=== PATIENT | female | born 1935 | race Caucasian/White ===

== ENCOUNTER 2017-12-15 09:44 | Emergency (ER) | payer OTHER ==
--- OUTSIDE RECORDS SUMMARY | 2017-12-15 09:45 | XMS REPORT ---
:1935 Author Organization [employer]ClinicalWorks Care Team Providers Name Role Phone Tanya Stewart Provider Role Unavailable Allergies, Adverse Reactions, Alerts Substance Reaction Event Type N.K.D.A. Info Not Available Non Drug Allergy Problems Problem Type Condition Code Onset Dates Condition Status Problem Hypertension, unspecified type I10 Active Problem Hypothyroidism, unspecified type E03.9 Active Problem Prediabetes R73.03 Active Problem Hypertension I10 Active Problem Hypothyroidism E03.9 Active Problem Hyperlipidemia E78.5 Active Problem Nicotine dependence F17.200 Active Problem Hyperlipidemia, unspecified E78.5 Active hyperlipidemia type Problem Osteoarthritis M19.90 Active Problem Depression with anxiety F41.8 Active Assessment Hyperlipidemia, unspecified E78.5 Active hyperlipidemia type Assessment Prediabetes R73.03 Active Assessment Depression with anxiety F41.8 Active Assessment Hypertension, unspecified type I10 Active Assessment Hypothyroidism, unspecified type E03.9 Active Medications Medication Code Code Instructions Start End Status Dosage System Date Date Cozaar [facility] 55317681418 100 mg Orally Active 1 tablet Once a day Fish Oil ND 52931192298 1000 MG Orally Active 1 capsule Once a day Citalopram ND 95763204927 20 mg Orally Active 1 tablet Hydrobromide Once a day Aleve ND 85299132798 220 MG Orally Active 1 tablet every 12 hrs with food or milk as needed Simvastatin ND 53681093597 20 mg Orally Active 1 tablet Once a day in the evening Levothyroxine ND 41078453465 100 MCG Orally Active 1 tablet Sodium Once a day on an empty stomach in the morning Os-Eliel Calcium + ND 35826282537 500-200 MG-UNIT Active 1 tablet D3 Orally Once a with a day meal Celebrex ND 25778970460 100 MG Orally Active 1 capsule Twice a day with food Results No Known Results Summary Purpose [facility]
[2017-12-15] MEDS ORDERED: LIDOCAINE 1% MPF 2 ML AMPULE ONE (10:28)
[2017-12-15] MEDS ORDERED: LIDOCAINE 2% MPF 5 ML VIAL ONE (10:28)
[2017-12-15] MEDS ORDERED: TETANUS & DIPHTHERIA TOX,ADULT 0.5 ML VIAL ONE (10:34)
--- NOTE | 2017-12-15 11:55 | RAD REPORT ---
EXAM DESCRIPTION: CT - CTHCSPWOC - 12/15/2017 10:46 am CLINICAL HISTORY: Fall, head and neck injury COMPARISON: None. TECHNIQUE: Axial 5 mm thick images of the head were obtained. Axial 2 mm thick images of the cervic al spine were obtained with sagittal and coronal reconstruction images generated and reviewed. All CT scans are performed using dose optimization technique as appropriate and may include automated exposure control or mA/KV adjustment according to patient size. FINDINGS: No intracranial hemorrhage, mass, edema or acute intracranial finding. No suspicion for acute infarct ion. Mild atrophy and mild to moderate chronic ischemic changes are present. Ventricles are in propor tion to the volume loss. Mastoid air cells and paranasal sinuses are clear. No globe or orbit abnorma lity seen. Physiologic and arterial calcifications are present. C2-C4 and C7 bodies are normal in height. There is minimal height loss in the C5 and C6 bodies with m ild retrolisthesis of these 2 bodies relative to C4 and C7. There are no findings to suspect an acute compression. There is significant degenerative disc disease at C5-6 and C6-7. Anterior and posterior endplate spurs are present. No significant bony foraminal encroachment. No other significant disc sp mook narrowing. No fracture or acute bony abnormality. No pathologic bone process. Central canal detai l is inherently limited. Multilevel facet joint degenerative change present. No paraspinal mass or hematoma. IMPRESSION: No hemorrhage, edema or acute intracranial finding. Mild atrophy and mild to moderate ch ronic ischemic changes are present. Advanced degenerative change involves C5, C6 and the C5-6 and C6-7 disc spaces. No fracture or acute cervical finding. Central canal detail is inherently limited.
--- NOTE | 2017-12-15 11:55 | ER ---
Nurse's Notes [facility] Name: Tisha Magana Age: 82 yrs Sex: Female : 1935 Arrival Date: 12/15/2017 Time: 09:45 Bed 3 Private MD: Tanya Stewart Diagnosis: Facial/lip laceration - Family history:: not pertinent. - Hospitalizations: : No recent hospitalization is reported. Assessment: 12/15 12:10 General: See paper charting. jl7 ED Course: 09:45 Patient arrived in ED. mr 09:45 Tanya Stewart MD is Private Physician. mr 10:16 Milind Valencia MD is Attending Physician. rn 10:36 Arpan Ramírez RN is Primary Nurse. jl7 10:45 CT completed. Patient tolerated procedure well. Patient moved to CT via wheelchair. vr Patient moved back from CT. 12:00 Assist provider with laceration repair on right upper lyudmila border that was jl7 between 2.6 to 7.5 cm using sutures. Set up tray. Performed by Cecil MARTI Patient tolerated well. 12:10 Patient did not have IV access during this emergency room visit. jl7 Administered Medications: No medications were administered Outcome: 11:54 Discharge ordered by . rn 12:10 Discharged to home ambulatory. jl7 12:10 Condition: stable 12:10 Discharge instructions given to patient, Instructed on discharge instructions, follow up and referral plans. Demonstrated understanding of instructions, follow-up care. 12:12 Patient left the ED. jl7 Signatures: Lisa Hanson mr Milind Valencia MD MD rn Davis, Victoria Arpan Ramírez RN RN jl7 Corrections: (The following items were deleted from the chart) 13:19 13:18 Discharged to home ambulatory, jl7 jl7 13:19 13:18 Condition: stable jl7 jl7 13:19 13:18 Discharge instructions given to patient, Instructed on discharge instructions, jl7 follow up and referral plans. Demonstrated understanding of instructions, follow-up care, jl7 13:19 13:15 Assist provider with laceration repair on right upper lyudmila border that was jl7 between 2.6 to 7.5 cm using sutures. Set up tray. Performed by Cecil MARTI Patient tolerated well. jl7
--- NOTE | 2017-12-15 11:56 | EDPHYS ---
Physician Documentation [facility] Name: Tisha Magana Age: 82 yrs Sex: Female : 1935 Arrival Date: 12/15/2017 Time: 09:45 Bed 3 Private MD: Tanya Stewart ED Physician Milind Valencia HPI: 12/15 10:21 This 82 yrs old Female presents to ER via Unassigned with complaints of Fall rn Injury. 10:21 Details of fall: The patient fell from an upright position, while walking. Onset: The rn symptoms/episode began/occurred just prior to arrival. Associated injuries: The patient sustained injury to the head. Severity of symptoms: At their worst the symptoms were mild, in the emergency department the symptoms have improved. The patient has not experienced similar symptoms in the past. Walking to take out trash, tripped, hit face on cabinet, no LOC, not on blood thinners, + laceration to lip/mouth, no other injuries, reports mild neck pain.. - Family history:: not pertinent. - Hospitalizations: : No recent hospitalization is reported. ROS: 10:21 Constitutional: Negative for fever, chills, and weight loss, Eyes: Negative for injury, rn pain, redness, and discharge, ENT: + lip and mouth laceration Neck: + neck pain Cardiovascular: Negative for chest pain, palpitations, and edema, Respiratory: Negative for shortness of breath, cough, wheezing, and pleuritic chest pain, Abdomen/GI: Negative for abdominal pain, nausea, vomiting, diarrhea, and constipation, Back: Negative for injury and pain, MS/Extremity: Negative for injury and deformity, Neuro: Negative for headache, weakness, numbness, tingling, and seizure. Exam: 10:21 Constitutional: This is a well developed, well nourished patient who is awake, alert, rn and in no acute distress. Head/Face: Normocephalic, 2 cm linear laceration right corner of mouth that crosses lyudmila border, also 1cm laceration inner right cheek not far from outer laceration, seems to communicate. no active bleeding, no dental injury Eyes: Pupils equal round and reactive to light, extra-ocular motions intact. Lids and lashes normal. Conjunctiva and sclera are non-icteric and not injected. Cornea within normal limits. Periorbital areas with no swelling, redness, or edema. Neck: Trachea midline, no thyromegaly or masses palpated, and no cervical lymphadenopathy. Supple, full range of motion without nuchal rigidity, or vertebral point tenderness. No Meningismus. Cardiovascular: Regular rate and rhythm with a normal S1 and S2. No gallops, murmurs, or rubs. Normal PMI, no JVD. No pulse deficits. Respiratory: Lungs have equal breath sounds bilaterally, clear to auscultation and percussion. No rales, rhonchi or wheezes noted. No increased work of breathing, no retractions or nasal flaring. Abdomen/GI: Soft, non-tender, with normal bowel sounds. No distension or tympany. No guarding or rebound. No evidence of tenderness throughout. Back: No spinal tenderness. No costovertebral tenderness. Full range of motion. MS/ Extremity: Pulses equal, no cyanosis. Neurovascular intact. Full, normal range of motion. Equal circumference. Neuro: Awake and alert, GCS 15, oriented to person, place, time, and situation. Cranial nerves II-XII grossly intact. Motor strength 5/5 in all extremities. Sensory grossly intact. Cerebellar exam normal. Normal gait. Laceration: 11:51 Wound Repair of 2cm ( 0.8in ) subcutaneous laceration to right cheek. Distal rn neuro/vascular/tendon intact. Anesthesia: Wound infiltrated with 4 mls of 1% lidocaine. Wound prep: Extensive cleansing by nurse, Wound explored extensively. Skin closed with 4 5-0 chromic using interrupted sutures and sterile technique. Subcutaneous tissue closed with 2 5-0 chromic. Mucosal layer closed with 4 5-0 chromic. Dressed with none. Patient tolerated well. MDM: 10:16 Patient medically screened. rn 11:51 Differential diagnosis: laceration. Data reviewed: vital signs, nurses notes, and as a rn result, I will discharge patient. Counseling: I had a detailed discussion with the patient and/or guardian regarding: the historical points, exam findings, and any diagnostic results supporting the discharge/admit diagnosis, radiology results, the need for outpatient follow up, to return to the emergency department if symptoms worsen or persist or if there are any questions or concerns that arise at home. Special discussion: Based on the patient's history, exam and DX evaluation, there is no indication for emergent intervention or inpatient TX. It is understood by the patient/guardian that if the SXs persist or worsen they need to return immediately for re-evaluation. I discussed with the patient/guardian in detail that at this point there is no indication for admission to the hospital. It is understood, however, that if the symptoms persist or worsen the patient needs to return immediately for re-evaluation. 12/15 11:57 Order name: CT EDMS Administered Medications: No medications were administered Disposition: 12/15/17 11:54 Discharged to Home. Impression: Facial/lip laceration. - Condition is Stable. - Discharge Instructions: Mouth Laceration, Facial Laceration. - Medication Reconciliation Form, Thank You Letter, Antibiotic Education, Prescription Opioid Use form. - Follow up: Private Physician; When: As needed; Reason: Recheck today's complaints, Re-evaluation by your physician. - Problem is new. - Symptoms have improved. Signatures: Milind Valencia MD MD rn Leal, Jahala, RN RN jl7 Corrections: (The following items were deleted from the chart) 12:12 11:54 12/15/2017 11:54 Discharged to Home. Impression: Facial/lip laceration. Condition jl7 is Stable. Forms are Medication Reconciliation Form, Thank You Letter, Antibiotic Education, Prescription Opioid Use. Follow up: Private Physician; When: As needed; Reason: Recheck today's complaints, Re-evaluation by your physician. Problem is new. Symptoms have improved. rn
== END 2017-12-15 12:12 | disposition home or self-care (01) ==
LOC: ER 09:44
PROC: 0JQ10ZZ Repair Face Subcutaneous Tissue and Fascia, Open Approach (ICD-10-PCS; principal; 2017-12-15)
DX: S01.511A Laceration without foreign body of lip, initial encounter (principal); W01.0XXA Fall on same level from slipping, tripping and stumbling without subsequent striking against object, initial encounter; Y93.89 Activity, other specified; Y92.014 Private driveway to single-family (private) house as the place of occurrence of the external cause
CPT/HCPCS: 12011; 70450; 72125; 90714; 99284; J2001

== ENCOUNTER 2018-03-24 16:21 | Emergency (ER) | payer OTHER ==
--- OUTSIDE RECORDS SUMMARY | 2018-03-24 16:22 | XMS REPORT ---
[...] End Status Dosage System Date Date Cozaar [facility] 89378342909 100 mg Orally Active 1 tablet Once a day Fish Oil ND 57021389292 1000 MG Orally Active 1 capsule Once a day Citalopram ND 36114043025 20 mg Orally Active 1 tablet Hydrobromide Once a day Aleve ND 07296071900 220 MG Orally Active 1 tablet every 12 hrs with food or milk as needed Simvastatin ND 18316678377 20 mg Orally Active 1 tablet Once a day in the evening Levothyroxine ND 34469268456 100 MCG Orally Active 1 tablet Sodium Once a day on an empty stomach in the morning Os-Eliel Calcium + ND 17758717267 500-200 MG-UNIT Active 1 tablet D3 Orally Once a with a day meal Celebrex ND 60983660993 100 MG Orally Active 1 capsule Twice a day with food Results No Known Results Summary [facility]
--- OUTSIDE RECORDS SUMMARY | 2018-03-24 16:22 | XMS REPORT ---
:1935 Author Organization eClinicalWorks Care Team Providers Name Role Phone Tanya Stewart Provider Role Unavailable Allergies No Known Allergies Problems Problem Type Condition Code Onset Dates Condition Status Problem Hypertension, unspecified type I10 Active Problem Hypothyroidism, unspecified type E03.9 Active Problem Prediabetes R73.03 Active Problem Hypertension I10 Active Problem Hypothyroidism E03.9 Active Problem Hyperlipidemia E78.5 Active Problem Nicotine dependence F17.200 Active Problem Hyperlipidemia, unspecified E78.5 Active hyperlipidemia type Problem Osteoarthritis M19.90 Active Problem Depression with anxiety F41.8 Active Medications No Known Medications Results No Known Results Summary Purpose [facility] Submission
[2018-03-24] MEDS ORDERED: MORPHINE 4 MG/ML SYR ONE (18:43)
[2018-03-24] MEDS ORDERED: ONDANSETRON 4 MG/2 ML VIAL ONE (18:43)
[2018-03-24 18:59] LABS: Absolute Lymphocytes (CBC) 2.4 K/uL (0.7-4.9); Absolute Monocytes 0.9 K/uL (0.1-1.3); Absolute Neutrophil 6.7 K/uL (1.8-8.0); Basophils % 0.4 % (0-1.3); Eosinophils % 1.1 % (0-4.4); Lymphocytes % 23.5 % (15.3-44.8); MPV 8.1 fL (7.6-11.3); Monocytes % 9.2 % (3.3-12.3); RBC Red Blood Cell Count 4.63 M/uL (3.86-4.86)
--- NOTE | 2018-03-24 18:59 | RAD REPORT ---
EXAM DESCRIPTION: RAD - Chest Pa And Lat (2 Views) - 03/24/2018 6:53 pm CLINICAL HISTORY: left rib pain Chest pain. COMPARISON: CHEST PA AND LAT 2 VIEW dated 01/11/2014 FINDINGS: Diffuse COPD is noted. No focal infiltrate is detected. The heart is normal in size. No di splaced fractures. Aortic atherosclerosis. IMPRESSION: Diffuse COPD.
[2018-03-24 19:17] LABS: Albumin 3.9 g/dL (3.4-5.0); Bilirubin Direct 0.1 mg/dL (0-0.2); Bilirubin Total 0.4 mg/dL (0.2-1.0); Potassium 3.9 mmol/L (3.5-5.1); Protein, Total 7.8 g/dL (6.4-8.2)
--- NOTE | 2018-03-24 19:50 | RAD REPORT ---
EXAM DESCRIPTION: CTAbdomen Pelvis W Contrast - 03/24/2018 7:34 pm CLINICAL HISTORY: Abdominal pain. LUQ pain COMPARISON: No comparisonsHead C Spine Mpr Wo Con dated 12/15/2017 TECHNIQUE: Biphasic CT imaging of the abdomen and pelvis was performed with 100 ml non-ionic IV cont rast. All CT scans are performed using dose optimization technique as appropriate and may include automated exposure control or mA/KV adjustment according to patient size. FINDINGS: The lung bases are clear. The liver, spleen, pancreas, adrenal glands and kidneys are within normal limits. No bowel obstruction, free air, free fluid or abscess. The appendix is not identified as a discrete structure, however, no secondary findings of appendicitis are identified. No evidence of significan t lymphadenopathy. Diffuse lytic and sclerotic lesions are seen throughout the axial skeleton. The ninth left lateral ri b shows cortical irregularity suspicious for nondisplaced fracture. 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 A nuclear medicine bone scan would be recommended for followup. Nondisplaced fracture left lateral rib, potentially a pathologic fracture.
--- NOTE | 2018-03-24 20:32 | ER ---
Nurse's Notes [facility] Name: Tisha Magana Age: 82 yrs Sex: Female : 1935 Arrival Date: 03/24/2018 Time: 16:25 Bed 28 Private MD: Tanya Stewart Diagnosis: Fracture of one rib, left side;Malignant neoplasm of ribs, sternum and clavicle Presentation: 03/24 16:45 Presenting complaint: Patient states: Rib pain for approx 1 month, first on R side that ph has resolved and now on L, pt denies injury, also denies SOB, seen at Dr Guzman office today for same complaint. Transition of care: patient was not received from another setting of care. Onset of symptoms was March 24, 2018. Risk Assessment: Do you want to hurt yourself or someone else? Patient reports no desire to harm self or others. Care prior to arrival: None. 16:45 Method Of Arrival: Ambulatory ph 16:45 Acuity: CAMPBELL 3 ph 18:48 Initial Sepsis Screen: Does the patient meet any 2 criteria? No. Patient's initial mg2 sepsis screen is negative. Does the patient have a suspected source of infection? No. Patient's initial sepsis screen is negative. Historical: - Allergies: 16:49 No Known Allergies; ph - PMHx: 16:49 Hyperlipidemia; Hypertension; Hypothyroidism; ph - PSHx: 16:49 R sided mastectomy; matthew shoulder; ph - Immunization history:: Flu vaccine status is unknown. - Social history:: Smoking status: Patient uses tobacco products, smokes one-half pack cigarettes per day. - Ebola Screening: : No symptoms or risks identified at this time. Screenin:48 Abuse screen: Denies threats or abuse. Denies injuries from another. Nutritional mg2 screening: No deficits noted. Tuberculosis screening: No symptoms or risk factors identified. Fall Risk IV access (20 points). Assessment: 18:47 General: Appears in no apparent distress. comfortable, Behavior is calm, cooperative. mg2 Pain: Complains of pain in left lower chest Pain does not radiate. Pain currently is 8 out of 10 on a pain scale. Quality of pain is described as aching, Pain began gradually. Neuro: Level of Consciousness is awake, alert, obeys commands, Oriented to person, place, time, situation. Cardiovascular: Capillary refill < 3 seconds Patient's skin is warm and dry. Respiratory: Airway is patent Respiratory effort is even, unlabored, Respiratory pattern is regular, symmetrical. GI: No signs and/or symptoms were reported involving the gastrointestinal system. : No deficits noted. EENT: No signs and/or symptoms were reported regarding the EENT system. Derm: Skin is intact, is healthy with good turgor, Skin is pink, warm \T\ dry. normal. Musculoskeletal: Circulation, motion, and sensation intact. Capillary refill < 3 seconds. 19:28 Reassessment: patient sent to ct scan. mg2 20:44 Reassessment: Patient appears in no apparent distress at this time. Patient and/or mg2 family updated on plan of care and expected duration. Pain level reassessed. Patient is alert, oriented x 3, equal unlabored respirations, skin warm/dry/pink. Vital Signs: 16:50 BP 133 / 67; Pulse 76; Resp 18; Temp 98.0; Pulse Ox 100% on R/A; Weight 64.86 kg; ph 18:10 BP 128 / 112 LA (auto/reg); Pulse 79; Resp 18; Pulse Ox 99% on R/A; jp3 19:00 BP 140 / 72; Pulse 70; Resp 18; Pulse Ox 100% on R/A; Pain 0/10; mg2 20:44 BP 130 / 78; Pulse 78; Resp 18; Pulse Ox 100% on R/A; Pain 0/10; mg2 ED Course: 16:25 Patient arrived in ED. mr 16:25 Tanya Stewart MD is Private Physician. mr 16:48 Triage completed. ph 16:51 Arm band placed on. ph 18:14 Devon Flowers NP is PHCP. pm1 18:14 Cheryl Gonzáles MD is Attending Physician. pm1 18:15 Placed in gown. Bed in low position. Call light in reach. Side rails up X 1. Pulse ox jp3 on. NIBP on. 18:23 Radiology exam delayed due to lab results not completed at this time. (BUN/Creatinine). vm2 18:24 Radiology exam delayed due to IV insertion attempt and/or patient not having vm2 appropriate IV at this time. 18:47 No provider procedures requiring assistance completed. Inserted saline lock: 20 gauge mg2 in left forearm, using aseptic technique. Blood collected. 18:53 Chest Pa And Lat (2 Views) XRAY In Process Unspecified. EDMS 18:54 Radiology exam delayed due to lab results not completed at this time. (BUN/Creatinine). vm2 19:07 Radiology exam delayed due to lab results not completed at this time. (BUN/Creatinine). vm2 19:28 Ayo Moran, RN is Primary Nurse. mg2 19:[address] via wheelchair. nj 19:33 CT completed. Patient tolerated procedure well. Patient moved back from CT. nj 19:38 CT Abd/Pelvis - W/Contrast: IV contrast only In Process Unspecified. EDMS 20:26 Sapphire Santana MD is Referral Physician. pm1 20:44 IV discontinued, intact, bleeding controlled, No redness/swelling at site. Pressure mg2 dressing applied. Administered Medications: 18:44 Drug: morphine 2 mg Route: IVP; Site: left antecubital; mg2 20:35 Follow up: Response: No adverse reaction; Marked relief of symptoms mg2 18:44 Drug: Zofran 4 mg Route: IVP; Site: left antecubital; mg2 20:35 Follow up: Response: No adverse reaction; Marked relief of symptoms mg2 Outcome: 20:30 Discharge ordered by MD. pm1 20:44 Discharged to home ambulatory, with family. mg2 20:44 Condition: good 20:44 Discharge instructions given to patient, family, Instructed on discharge instructions, follow up and referral plans. medication usage, Demonstrated understanding of instructions, follow-up care, medications, Prescriptions given X 1. 20:45 Patient left the ED. mg2 Signatures: Dispatcher [employer] [facility] Valentin Eliza Shyann Noyola RN RN ph Devon Flowers, LIBRARY CIRCULATION CLERK LIBRARY CIRCULATION CLERK pm1 Nasim Naylor nj Diane Hahn 2 Ayo Moran, NIGEL RN mg2 Tyrese Laughlin 3
--- NOTE | 2018-03-24 20:32 | EDPHYS ---
Physician Documentation [facility] Name: Tisha Magana Age: 82 yrs Sex: Female : 1935 Arrival Date: 03/24/2018 Time: 16:25 Bed 28 Private MD: Tanya Stewart ED Physician Cheryl Gonzáles HPI: 03/24 19:00 This 82 yrs old Female presents to ER via Ambulatory with complaints of Rib pm1 Pain. 19:00 Onset: 4 week(s) ago. The pain does not radiate. Associated signs and symptoms: pm1 Pertinent negatives: abdominal pain, cough, dizziness, headache, nausea, palpitations, shortness of breath, vomiting. Modifying factors: the symptoms are aggravated by palpation of area. The patient has not experienced similar symptoms in the past. The patient has not recently seen a physician. Patient with onset of right lower anterior rib pain 4 weeks ago. Lasted for 1.5 weeks then the left lower anterior rib area started to hurt and has been present for 2.5 weeks. Patient denies any trauma. Historical: - Allergies: 16:49 No Known Allergies; ph - PMHx: 16:49 Hyperlipidemia; Hypertension; Hypothyroidism; ph - PSHx: 16:49 R sided mastectomy; matthew shoulder; ph - Immunization history:: Flu vaccine status is unknown. - Social history:: Smoking status: Patient uses tobacco products, smokes one-half pack cigarettes per day. - Ebola Screening: : No symptoms or risks identified at this time. ROS: 19:00 Constitutional: Negative for fever, chills, and weight loss, Eyes: Negative for injury, pm1 pain, redness, and discharge, ENT: Negative for injury, pain, and discharge, Neck: Negative for injury, pain, and swelling, Cardiovascular: Negative for chest pain, palpitations, and edema, Respiratory: Negative for shortness of breath, cough, wheezing, and pleuritic chest pain, Abdomen/GI: Negative for abdominal pain, nausea, vomiting, diarrhea, and constipation, Back: Negative for injury and pain, : Negative for injury, bleeding, discharge, and swelling, MS/Extremity: Negative for injury and deformity, Skin: Negative for injury, rash, and discoloration, Neuro: Negative for headache, weakness, numbness, tingling, and seizure. Exam: 19:00 Constitutional: This is a well developed, well nourished patient who is awake, alert, pm1 and in no acute distress. Head/Face: Normocephalic, atraumatic. Eyes: Pupils equal round and reactive to light, extra-ocular motions intact. Lids and lashes normal. Conjunctiva and sclera are non-icteric and not injected. Cornea within normal limits. Periorbital areas with no swelling, redness, or edema. ENT: Nares patent. No nasal discharge, no septal abnormalities noted. Tympanic membranes are normal and external auditory canals are clear. Oropharynx with no redness, swelling, or masses, exudates, or evidence of obstruction, uvula midline. Mucous membranes moist. Neck: Trachea midline, no thyromegaly or masses palpated, and no cervical lymphadenopathy. Supple, full range of motion without nuchal rigidity, or vertebral point tenderness. No Meningismus. 19:00 Cardiovascular: Regular rate and rhythm with a normal S1 and S2. No gallops, murmurs, or rubs. Normal PMI, no JVD. No pulse deficits. Respiratory: Lungs have equal breath sounds bilaterally, clear to auscultation and percussion. No rales, rhonchi or wheezes noted. No increased work of breathing, no retractions or nasal flaring. Abdomen/GI: Soft, non-tender, with normal bowel sounds. No distension or tympany. No guarding or rebound. No evidence of tenderness throughout. Back: No spinal tenderness. No costovertebral tenderness. Full range of motion. Skin: Warm, dry with normal turgor. Normal color with no rashes, no lesions, and no evidence of cellulitis. MS/ Extremity: Pulses equal, no cyanosis. Neurovascular intact. Full, normal range of motion. 19:00 Chest/axilla: Inspection: normal, Palpation: crepitus, is not appreciated, tenderness, that is moderate, of the Focal point tenderness to left lower anterior rib, that totally reproduces the patient's complaints, Axilla: 19:00 Neuro: Orientation: is normal, Motor: is normal, moves all fours. Vital Signs: 16:50 BP 133 / 67; Pulse 76; Resp 18; Temp 98.0; Pulse Ox 100% on R/A; Weight 64.86 kg; ph 18:10 BP 128 / 112 LA (auto/reg); Pulse 79; Resp 18; Pulse Ox 99% on R/A; jp3 19:00 BP 140 / 72; Pulse 70; Resp 18; Pulse Ox 100% on R/A; Pain 0/10; mg2 20:44 BP 130 / 78; Pulse 78; Resp 18; Pulse Ox 100% on R/A; Pain 0/10; mg2 MDM: 18:14 Patient medically screened. pm1 20:25 Data reviewed: vital signs. Data interpreted: Pulse oximetry: on room air is 100 %. pm1 Interpretation: normal. Counseling: I had a detailed discussion with the patient and/or guardian regarding: the historical points, exam findings, and any diagnostic results supporting the discharge/admit diagnosis, lab results, radiology results, the need for outpatient follow up, to return to the emergency department if symptoms worsen or persist or if there are any questions or concerns that arise at home. 03/24 18:22 Order name: Basic Metabolic Panel; Complete Time: 20:11 pm1 03/24 18:22 Order name: CBC with Diff; Complete Time: 20:11 pm1 03/24 18:22 Order name: Creatinine for Radiology; Complete Time: 20:11 pm1 03/24 18:22 Order name: Hepatic Function; Complete Time: 20:11 pm1 03/24 18:22 Order name: Lipase; Complete Time: 20:11 pm1 03/24 18:22 Order name: CT Abd/Pelvis - W/Contrast: IV contrast only; Complete Time: 20:11 pm1 03/24 18:22 Order name: IV Saline Lock; Complete Time: 18:44 pm1 03/24 18:22 Order name: Labs collected and sent; Complete Time: 18:44 pm1 03/24 18:22 Order name: Chest Pa And Lat (2 Views) XRAY; Complete Time: 20:11 pm1 Administered Medications: 18:44 Drug: morphine 2 mg Route: IVP; Site: left antecubital; mg2 20:35 Follow up: Response: No adverse reaction; Marked relief of symptoms mg2 18:44 Drug: Zofran 4 mg Route: IVP; Site: left antecubital; mg2 20:35 Follow up: Response: No adverse reaction; Marked relief of symptoms mg2 Disposition: 03/24/18 20:30 Discharged to Home. Impression: Fracture of one rib, left side, Malignant neoplasm of ribs, sternum and clavicle. - Condition is Stable. - Discharge Instructions: Rib Fracture, Bone Metastasis. - Prescriptions for Tylenol- Codeine #3 300-30 mg Oral Tablet - take 2 tablets by ORAL route every 6 hours As needed; 20 tablet. - Medication Reconciliation Form, Thank You Letter, Antibiotic Education, Prescription Opioid Use form. - Follow up: Emergency Department; When: As needed; Reason: Worsening of condition. Follow up: Sapphire Santana MD; When: 2 - 3 days; Reason: Recheck today's complaints, Continuance of care, Re-evaluation by your physician. - Problem is new. - Symptoms have improved. Addendum: 03/26/2018 17:24 Co-signature as Attending Physician, Cheryl Gonzáles MD. m a2 Signatures: Dispatcher [employer] EDMS Shyann Lu RN RN ph Devon Flowers, SAWMILL SUPERVISOR SAWMILL SUPERVISOR pm1 Cheryl Gnozáles MD MD ma2 Ayo Moran RN RN mg2 Corrections: (The following items were deleted from the chart) 03/24 20:45 20:30 03/24/2018 20:30 Discharged to Home. Impression: Fracture of one rib, left side; mg2 Malignant neoplasm of ribs, sternum and clavicle. Condition is Stable. Forms are Medication Reconciliation Form, Thank You Letter, Antibiotic Education, Prescription Opioid Use. Follow up: Emergency Department; When: As needed; Reason: Worsening of condition. Follow up: Sapphire Santana; When: 2 - 3 days; Reason: Recheck today's complaints, Continuance of care, Re-evaluation by your physician. Problem is new. Symptoms have improved. pm1
== END 2018-03-24 20:45 | disposition home or self-care (01) ==
LOC: ER 16:21
DX: S22.32XA Fracture of one rib, left side, initial encounter for closed fracture (principal); C41.3 Malignant neoplasm of ribs, sternum and clavicle; I10 Essential (primary) hypertension; F17.210 Nicotine dependence, cigarettes, uncomplicated
CPT/HCPCS: 36415; 71046; 74177; 80048; 80076; 83690; 85025; 96374; 96375; 99284; J2405; Q9967